=== PATIENT | female | born 1980 | race Caucasian/White ===

== ENCOUNTER 2022-03-22 13:00 | Inpatient (IN) | payer OTHER ==
[2022-03-22 14:48] VITALS: BMI 30.4
[2022-03-22] MEDS ORDERED: CITRIC ACID/SODIUM CITRATE 30 ML UNIT-DOSE CUP PO ONE (15:44)
[2022-03-22] MEDS ORDERED: ELECTROLYTE-148 SOLN 1,000 ML IV SCH (15:45)
[2022-03-22] MEDS ORDERED: OXYTOCIN 30 UNITS in 0.9% NS 30 UNIT/500 ML INFUS.BAG IVPB ONE (16:21)
[2022-03-22] MEDS ORDERED: METOCLOPRAMIDE HCL INJECTION 10 MG/2 ML VIAL ONE (16:25)
[2022-03-22] MEDS ORDERED: ONDANSETRON 4 MG/2 ML VIAL ONE (16:25)
[2022-03-22] MEDS ORDERED: ceFAZolin SODIUM 1 GM VIAL ONE (16:25)
[2022-03-22] MEDS ORDERED: morphine SULFATE/PF 1 MG/2 ML (2cc Syringe - QUVA) ONE (16:26)
[2022-03-22] MEDS ORDERED: morphine SULFATE/PF 1 MG/2 ML (2cc Syringe - QUVA) IT ONE (17:17)
[2022-03-22] MEDS ORDERED: KETOROLAC TROMETHAMINE 30 MG/1 ML VIAL ONE (17:45)
[2022-03-22] MEDS ORDERED: OXYTOCIN 20 UNITS in 0.9% NS 20 UNIT/1,000 ML INFUS.BAG IV ONE (18:28)
[2022-03-22] MEDS ORDERED: METHYLERGONOVINE MALEATE 0.2 MG/1 ML AMP IM PRN (18:30)
[2022-03-22] MEDS ORDERED: OXYTOCIN 20 UNITS in 0.9% NS 20 UNIT/1,000 ML INFUS.BAG IV SCH (18:30)
[2022-03-22] MEDS ORDERED: ACETAMINOPHEN 325 MG TABLET (FP) PO PRN (18:30)
[2022-03-22] MEDS ORDERED: ONDANSETRON 4 MG/2 ML VIAL IVPUSH PRN (18:31)
[2022-03-23] MEDS: IBUPROFEN 800 MG/8 ML IJ IVPB PRN ×2 (01:43→08:48)
[2022-03-23] MEDS ORDERED: oxyCODONE HCL 5 MG TABLET PO PRN ×2 (06:30)
[2022-03-23 08:37] LABS: BASO % 0.4 % (0-2.0); EOS % 0.5 % (0-4.5); HEMATOCRIT 28.8 % (32.4-45.2); HEMOGLOBIN 9.5 GM/dL (10.7-15.3); LYMPH % 22.1 % (8-40); MCH 30.1 pg (25.7-33.7); MEAN CELL VOLUME 91.2 fl (80-96); MEAN PLT VOLUME 7.1 fl (7.5-11.1); PLATELET COUNT 292 10^3/uL (134-434); RBC 3.16 M/mm3 (3.60-5.2); RDW 14.7 % (11.6-15.6); WHITE BLOOD COUNT 8.3 K/mm3 (4.0-10.0)
[2022-03-23] MEDS: PRENATAL VITAMINS W/ FOLIC ACID TABLET (FP) PO SCH (10:15)
[2022-03-23] MEDS: SIMETHICONE 80 MG TAB.CHEW (FP) PO PRN ×3 (10:15→20:15)
[2022-03-23] MEDS: IBUPROFEN 600 MG TABLET (FP) PO PRN ×2 (15:52→20:15)
[2022-03-23] MEDS ORDERED: BISACODYL 10 MG SUPP.RECT RC PRN (18:30)
[2022-03-24] MEDS: IBUPROFEN 600 MG TABLET (FP) PO PRN ×4 (03:16→21:17)
[2022-03-24] MEDS: SENNOSIDES/DOCUSATE COMBO (SENNA PLUS) TABLET (UD) PO PRN ×2 (03:18→21:16)
[2022-03-24] MEDS: SIMETHICONE 80 MG TAB.CHEW (FP) PO PRN ×3 (09:28→21:16)
[2022-03-24] MEDS: PRENATAL VITAMINS W/ FOLIC ACID TABLET (FP) PO SCH (09:28)
[2022-03-25] MEDS: PRENATAL VITAMINS W/ FOLIC ACID TABLET (FP) PO SCH (10:30)
[2022-03-25 11:24] VITALS: BP 117/77; PULSE 83; RESP 17; TEMP 98.3
== END 2022-03-25 14:45 | disposition home or self-care (01) | DRG 540 ==
LOC: JLDR 13:00 → J3W 20:10
PROVIDERS: ADMIT Obstetrics & Gynecology; ATTEND Obstetrics & Gynecology
PROC: 10D00Z1 Extraction of Products of Conception, Low, Open Approach (ICD-10-PCS; principal; 2022-03-22)
DX: O41.03X0 Oligohydramnios, third trimester, not applicable or unspecified (principal); O36.5930 Maternal care for other known or suspected poor fetal growth, third trimester, not applicable or unspecified; O32.8XX0 Maternal care for other malpresentation of fetus, not applicable or unspecified; O34.211 Maternal care for low transverse scar from previous cesarean delivery; Z3A.38 38 weeks gestation of pregnancy; Z37.0 Single live birth
CPT/HCPCS: 36415; 85025; 86850; 86900; 86901; 86922; 88307-TC